=== PATIENT | female | born 1995 | race African-American/Black ===

== ENCOUNTER 2017-01-07 16:00 | Emergency (ER) | payer SELFPAY | END 2017-01-07 17:39 | disposition left against medical advice (07) | LOC: ER 16:00 | DX: R10.9 Unspecified abdominal pain (principal); R51 Headache; Z53.21 Procedure and treatment not carried out due to patient leaving prior to being seen by health care provider ==

== ENCOUNTER 2017-11-08 07:55 | Inpatient (IN) | payer MEDICAID ==
[~2017-11-08] VITALS: Ht 167.6 cm; Wt 70.3 kg
[2017-11-08] MEDS ORDERED: PNV1TABL76 PO (08:00)
[2017-11-08] MEDS ORDERED: ACET-2708 PO (08:00)
[2017-11-08] MEDS ORDERED: ALBU05 IH (08:00)
[2017-11-08] MEDS ORDERED: METHYLERGONOVINE MALEATE 0.2 MG/ML IM PRN (09:30)
[2017-11-08] MEDS ORDERED: BUTORPHANOL TARTRATE 2 MG/ML VIAL IV PRN (09:30)
[2017-11-08] MEDS ORDERED: LIDOCAINE HCL 1% 20ML VIAL (Pyxis) INJ INFIL PRN (09:30)
[2017-11-08] MEDS ORDERED: MISOPROSTOL 100MCG TABLET VG PRN (09:30)
[2017-11-08] MEDS ORDERED: NALOXONE HCL 0.4 MG/ML 1ML VIAL IM PRN (09:30)
[2017-11-08 10:01] LABS: BASOPHILS % 0.3 % (0.0-2.0); EOSINOPHILS % 0.1 % (0.0-5.0); HEMATOCRIT. 30.8 % (36.0-48.0); HEMOGLOBIN. 10.5 g/dL (12.0-16.0); LYMPHOCYTES % 17.6 % (20.0-50.0); MEAN CORPUSCULAR HEMOGLOBIN 28.9 pg (28.0-32.0); MEAN CORPUSCULAR VOLUME 84.9 fL (81.0-99.0); MEAN PLATELET VOLUME 7.4 fl (7.4-10.4); MONOCYTES % 6.4 % (2.0-8.0); NEUTROPHILS % 75.6 % (40.0-76.0); PLATELET 213 x1000/uL (130-400); RED BLOOD CELL COUNT 3.63 mill/uL (4.2-5.4); RED CELL DISTRIBUTION WIDTH 13.6 % (11.6-14.6)
[2017-11-08 10:09] LABS: INR 0.9; PARTIAL THROMBOPLASTIN TIME 23.4 sec (23.4-31.0); PROTHROMBIN TIME 9.9 sec (9.4-11.6)
[2017-11-08] MEDS ORDERED: BUPIVACAINE HCL/NS/PF EPIDURAL 100 ML EP ONE (10:34)
[2017-11-08] MEDS ORDERED: BUPIVACAINE HCL/PF 0.25% (2.5MG/ML) 10ML ONE ×3 (10:34→17:33)
[2017-11-08 10:35] LABS: CLARITY URINE CLOUDY (CLEAR); COLOR URINE YELLOW (YELLOW); KETONES URINE 4+ (NEGATIVE); LEUKOCYTE ESTERASE URINE 3+ (NEGATIVE); NITRITE URINE NEGATIVE (NEGATIVE); OCCULT BLOOD URINE 2+ (NEGATIVE); PROTEIN URINE NEGATIVE (NEGATIVE); SPECIFIC GRAVITY URINE 1.015 (1.005-1.030)
[2017-11-08] MEDS ORDERED: FENTANYL CITRATE/PF 50MCG/ML 2ML VIAL ONE (10:35)
[2017-11-08 10:58] LABS: HEPATITIS B SURFACE ANTIGEN NEGATIVE
[2017-11-08 11:57] LABS: *AMPHETAMINES SCREEN URINE NEGATIVE (NEGATIVE); *BARBITURATES SCREEN URINE NEGATIVE (NEGATIVE); *BENZODIAZEPINES SCREEN URINE NEGATIVE (NEGATIVE); *COCAINE SCREEN URINE NEGATIVE (NEGATIVE); METHADONE URINE SCREEN NEGATIVE (NEGATIVE); OPIATES URINE SCREEN NEGATIVE (NEGATIVE); PHENCYCLIDINE URINE SCREEN NEGATIVE (NEGATIVE)
[2017-11-08 12:02] LABS: CANNABINOID URINE SCREEN PRESUMTIVE POSITIVE (NEGATIVE)
[2017-11-08] MEDS: LACTATED RINGERS 1,000 ML IV SCH ×2 (13:37→20:22)
[2017-11-08] MEDS ORDERED: STERILE WATER FOR INJECTION 10ML VIAL ONE (17:34)
[2017-11-08] MEDS ORDERED: DEXT 5%/LR + PITOCIN 20UNITS/L 1,000 ML IV ONE (18:55)
[2017-11-08] MEDS ORDERED: LIDOCAINE HCL/PF 1% 10 MG/ML 5ML VIAL ONE (18:58)
[2017-11-08] MEDS: DEXT 5%/LACTATED RINGERS 1,000 ML IV SCH ×2 (21:19→22:16)
[2017-11-08] MEDS ORDERED: DEXT 5%/LR + PITOCIN 20UNITS/L 1,000 ML IV SCH ×2 (21:55→22:24)
[2017-11-08] MEDS ORDERED: ACETAMINOPHEN WITH CODEINE 300/30MG TABLET PO PRN ×2 (22:30)
[2017-11-08] MEDS ORDERED: HEMORRHOIDAL SUPP PR PRN (22:30)
[2017-11-08] MEDS ORDERED: BISACODYL 10MG SUPP PR PRN (22:30)
[2017-11-08 22:50] VITALS: BP 127/61
[2017-11-08 23:15] VITALS: BP 125/54
[2017-11-08 23:45] VITALS: BP 122/56
[2017-11-09] MEDS: IBUPROFEN 800MG TABLET PO PRN ×3 (00:29→17:40)
[2017-11-09 06:52] LABS: BASOPHILS % 0.2 % (0.0-2.0); HEMATOCRIT. 28.1 % (36.0-48.0); HEMOGLOBIN. 9.5 g/dL (12.0-16.0); LYMPHOCYTES % 9.4 % (20.0-50.0); MEAN CORPUSCULAR HEMOGLOBIN 28.6 pg (28.0-32.0); MEAN CORPUSCULAR VOLUME 84.5 fL (81.0-99.0); MEAN PLATELET VOLUME 7.3 fl (7.4-10.4); MONOCYTES % 8.8 % (2.0-8.0); NEUTROPHILS % 81.6 % (40.0-76.0); PLATELET 204 x1000/uL (130-400); RED BLOOD CELL COUNT 3.33 mill/uL (4.2-5.4); RED CELL DISTRIBUTION WIDTH 13.7 % (11.6-14.6)
[2017-11-09 07:44] VITALS: BP 109/50
[2017-11-09] MEDS: MAGNESIUM/ALUMINUM HYDROXIDE/SIMETHICONE 30ML UDC PO SCH ×4 (08:37→21:03)
[2017-11-09] MEDS: SIMETHICONE 80MG TABLET CHEW PO SCH ×4 (08:39→21:03)
[2017-11-09] MEDS: FERROUS SULFATE 325MG TABLET PO SCH ×2 (13:19→17:40)
[2017-11-09 16:37] VITALS: BP 117/70
[2017-11-09] MEDS ORDERED: DOCUSATE SODIUM 100MG CAPSULE PO SCH (21:00)
[2017-11-09 22:00] VITALS: BP 115/64
[2017-11-10 06:00] VITALS: BP 112/60
[2017-11-10 07:30] VITALS: BP 104/73
[2017-11-10] MEDS ORDERED: TETANUS, DIPHTHERIA, PERTUSSIS VAC/PF 0.5ML (>7YR OLD) IM ONE (08:00)
[2017-11-10 08:35] VITALS: BP 112/60
[2017-11-10] MEDS: IBUPROFEN 800MG TABLET PO PRN (08:35)
[2017-11-10] MEDS: FERROUS SULFATE 325MG TABLET PO SCH (08:35)
[2017-11-10] MEDS: SIMETHICONE 80MG TABLET CHEW PO SCH (08:36)
[2017-11-10] MEDS: MAGNESIUM/ALUMINUM HYDROXIDE/SIMETHICONE 30ML UDC PO SCH (08:36)
== END 2017-11-10 13:15 | disposition home or self-care (01) | DRG 560 ==
LOC: OBSVTOIN 07:55 → L&D 07:55 → 7EST PP/OB 22:00
PROVIDERS: ADMIT Obstetrics & Gynecology; ATTEND Obstetrics & Gynecology
PROC: 10E0XZZ Delivery of Products of Conception, External Approach (ICD-10-PCS; principal; 2017-11-08 20:24)
DX: O48.0 Post-term pregnancy (principal); Z37.0 Single live birth; Z3A.39 39 weeks gestation of pregnancy
CPT/HCPCS: 36415; 80305; 80349; 81003; 85025; 85610; 85730; 86592; 86703; 86762; 86850; 86900; 87086; 87340; 90715; A4216; J2590; J3010; J3490; J7120; J7121; A4315

== ENCOUNTER 2021-05-09 18:43 | Emergency (ER) | payer MEDICAID, OTHER ==
[~2021-05-09] VITALS: Ht 157.5 cm; Wt 75.0 kg
[2021-05-09 18:51] VITALS: BP 109/67
[2021-05-10] MEDS ORDERED: ONDA4TAB5 MT (11:34)
[2021-05-10] MEDS ORDERED: NITR100C MT (11:34)
== END 2021-05-09 20:30 | disposition left against medical advice (07) ==
LOC: ER 18:43
DX: Z53.21 Procedure and treatment not carried out due to patient leaving prior to being seen by health care provider (principal)

== ENCOUNTER 2021-05-10 07:58 | Emergency (ER) | payer MEDICAID ==
[~2021-05-10] VITALS: Ht 167.6 cm; Wt 55.0 kg
[2021-05-10] MEDS ORDERED: ONDANSETRON 4MG ODT PO STA (08:26)
[2021-05-10 08:48] LABS: BASOPHILS % 0.7 % (0.0-2.0); EOSINOPHILS % 0.7 % (0.0-5.0); HEMATOCRIT. 38.9 % (36.0-48.0); HEMOGLOBIN. 12.8 g/dL (12.0-16.0); LYMPHOCYTES % 35.4 % (20.0-50.0); MEAN CORPUSCULAR HEMOGLOBIN 28.6 pg (28.0-32.0); MEAN CORPUSCULAR VOLUME 86.7 fL (81.0-99.0); MEAN PLATELET VOLUME 7.5 fl (7.4-10.4); MONOCYTES % 7.3 % (2.0-8.0); NEUTROPHILS % 55.9 % (40.0-76.0); PLATELET 273 x1000/uL (130-400); RED BLOOD CELL COUNT 4.49 mill/uL (4.2-5.4)
[2021-05-10 08:49] LABS: CHLORIDE 106 mEq/L (98-107)
[2021-05-10 09:47] LABS: CLARITY URINE CLOUDY (CLEAR); COLOR URINE YELLOW (YELLOW); KETONES URINE 1+ (NEGATIVE); LEUKOCYTE ESTERASE URINE 1+ (NEGATIVE); NITRITE URINE NEGATIVE (NEGATIVE); OCCULT BLOOD URINE TRACE (NEGATIVE); PH URINE 8.5 (4.5-8.0); PROTEIN URINE TRACE (NEGATIVE); SPECIFIC GRAVITY URINE 1.015 (1.005-1.030); UROBILINOGEN URINE 0.2 E.U./dL (0.2-1.0)
[2021-05-10] MEDS ORDERED: NITROFURANTOIN 100MG M/M CAPSULE PO ONE (10:45)
[2021-05-10] MEDS ORDERED: NITR100C MT (11:34)
[2021-05-10] MEDS ORDERED: ONDA4TAB5 MT (11:34)
[2021-05-10 11:45] VITALS: BP 104/61
== END 2021-05-10 11:53 | disposition home or self-care (01) ==
LOC: ER 07:58
DX: R11.2 Nausea with vomiting, unspecified (principal); F15.10 Other stimulant abuse, uncomplicated; F41.9 Anxiety disorder, unspecified; Z87.891 Personal history of nicotine dependence; Z98.890 Other specified postprocedural states; Z79.899 Other long term (current) drug therapy
CPT/HCPCS: 36415; 80053; 81003; 83690; 84702; 85025; 99283; Q0162

== ENCOUNTER 2021-06-14 18:17 | Emergency (ER) | payer MEDICAID ==
[~2021-06-14] VITALS: Ht 167.6 cm; Wt 50.0 kg
[~2021-06-14 18:17] MED LIST: NITR100C MT; ONDA4TAB5 MT
[2021-06-14 19:56] LABS: BASOPHILS % 0.4 % (0.0-2.0); EOSINOPHILS % 1.1 % (0.0-5.0); HEMATOCRIT. 37.8 % (36.0-48.0); HEMOGLOBIN. 12.4 g/dL (12.0-16.0); LYMPHOCYTES % 32.8 % (20.0-50.0); MEAN CORPUSCULAR HEMOGLOBIN 28.4 pg (28.0-32.0); MEAN CORPUSCULAR VOLUME 86.4 fL (81.0-99.0); MEAN PLATELET VOLUME 7.7 fl (7.4-10.4); NEUTROPHILS % 58.7 % (40.0-76.0); PLATELET 247 x1000/uL (130-400); RED BLOOD CELL COUNT 4.38 mill/uL (4.2-5.4); RED CELL DISTRIBUTION WIDTH 16.9 % (11.6-14.6)
[2021-06-14 20:02] LABS: HCG SCREEN NEGATIVE
[2021-06-14 21:04] LABS: CHLORIDE 109 mEq/L (98-107)
[2021-06-15 00:58] LABS: CLARITY URINE CLOUDY (CLEAR); COLOR URINE YELLOW (YELLOW); KETONES URINE 1+ (NEGATIVE); LEUKOCYTE ESTERASE URINE 2+ (NEGATIVE); NITRITE URINE NEGATIVE (NEGATIVE); OCCULT BLOOD URINE 1+ (NEGATIVE); PROTEIN URINE NEGATIVE (NEGATIVE); SPECIFIC GRAVITY URINE 1.014 (1.005-1.030); UROBILINOGEN URINE 0.2 E.U./dL (0.2-1.0)
[2021-06-15] MEDS: ONDANSETRON 4MG ODT PO STA (00:59)
[2021-06-15] MEDS ORDERED: ONDANSETRON 4MG ODT PO NR (01:00)
[2021-06-15] MEDS ORDERED: CEPH500T MT (02:02)
[2021-06-15] MEDS ORDERED: CEPHALEXIN 250MG CAPSULE PO NR (02:15)
[2021-06-15 02:19] VITALS: BP 121/66
[2021-06-15 03:11] LABS: UCG SCREEN NEGATIVE
== END 2021-06-15 02:20 | disposition home or self-care (01) ==
LOC: ER 18:42
DX: N39.0 Urinary tract infection, site not specified (principal); F41.9 Anxiety disorder, unspecified; F15.10 Other stimulant abuse, uncomplicated; Z98.890 Other specified postprocedural states
CPT/HCPCS: 36415; 80053; 81003; 81025; 84703; 85025; 99283; Q0162

== ENCOUNTER 2024-08-31 12:40 | Emergency (ER) | payer MEDICAID, OTHER ==
[~2024-08-31] VITALS: Ht 170.2 cm; Wt 55.0 kg
[~2024-08-31 12:40] MED LIST changes: +CEPH500T MT
[2024-08-31 12:44] VITALS: BP 115/63; PULSE 55; RESP 16; TEMP 98.4; O2SAT 99
[2024-08-31 13:42] LABS: BASOPHILS % 0.3 % (0.0-2.0); EOSINOPHILS % 0.4 % (0.0-5.0); HEMATOCRIT. 36.4 % (36.0-48.0); HEMOGLOBIN. 12.1 g/dL (12.0-16.0); MEAN CORPUSCULAR HEMOGLOBIN 30.6 pg (28.0-32.0); MEAN CORPUSCULAR HGB CONC 33.3 g/dL (31.0-37.0); MEAN PLATELET VOLUME 7.6 fl (7.4-10.4); MONOCYTES % 5.2 % (2.0-8.0); NEUTROPHILS % 82.1 % (40.0-76.0); PLATELET 226 x1000/uL (130-400); RED BLOOD CELL COUNT 3.96 mill/uL (4.2-5.4); RED CELL DISTRIBUTION WIDTH 13.6 % (11.6-14.6)
[2024-08-31 13:48] LABS: CHLORIDE 107 mEq/L (98-107); POTASSIUM 3.8 mEq/L (3.5-5.1); SODIUM 141 mEq/L (136-145)
[2024-08-31 13:49] LABS: CALCIUM 9.7 mg/dL (8.7-10.4); CARBON DIOXIDE 25 mEq/L (21-32)
[2024-08-31 13:54] LABS: CREATININE 0.6 mg/dL (0.6-1.0); GLUCOSE 90 mg/dL (70-105); UREA NITROGEN BLOOD 5 mg/dL (9-23)
[2024-08-31 13:56] LABS: ALANINE AMINOTRANSFERASE 11 IU/L (10-49); ALBUMIN 4.5 g/dL (3.2-4.8); ASPARTATE AMINOTRANSFERASE 15 IU/L (<34); BILIRUBIN DIRECT 0.3 mg/dL (<=3.0); BILIRUBIN TOTAL 0.8 mg/dL (0.1-1.0)
[2024-08-31 13:57] LABS: PROTHROMBIN TIME 11.1 sec (9.6-11.0)
[2024-08-31 14:02] LABS: B-HCG QUANTITATIVE < 1 mIU/mL (<3)
[2024-08-31] MEDS: ONDANSETRON 4MG ODT PO ONE (14:43)
[2024-08-31] MEDS ORDERED: ONDA4TAB50 MT (14:55)
[2024-08-31] MEDS ORDERED: KETO10TA2 MT (14:55)
== END 2024-08-31 15:31 | disposition home or self-care (01) ==
LOC: ER 12:40
DX: N83.209 Unspecified ovarian cyst, unspecified side (principal); F15.10 Other stimulant abuse, uncomplicated; F41.9 Anxiety disorder, unspecified; Z79.899 Other long term (current) drug therapy; Z86.39 Personal history of other endocrine, nutritional and metabolic disease
CPT/HCPCS: 99284; 76830; 76856; 80076; 80048; 84702; 83690; 85025; 85610; 86850; 86900; 86901; 36415; Q0162